=== PATIENT | female | born 1970 | race Caucasian/White ===

== ENCOUNTER 2020-11-15 15:44 | Emergency (ER) | payer OTHER ==
[~2020-11-15] VITALS: Ht 162.6 cm; Wt 75.3 kg
--- NOTE | ~2020-11-15 | EMS ---
[address] [address] EMS Patient Care Report Name: GUS FELIZ Room #: DEP ERIKA Wang#: [id number] Admission: 11/15/20 Attend Phys: Discharge: 11/15/20 Date of : 74 Report #: [id number] THIS REPORT FOR: //name// Report Transmitted: 11/17/2020 08:51 EMS Care Summary [place], [place]/[facility] Incident [id number] @ 11/15/2020 15:13 Incident Location [address] [place], [place] [id number] Patient GUS FELIZ Female, 50 Years 1970 Patient Address [address] [place], [place] [id number] Patient History Multiple Sclerosis, Chief Complaint Respiratory Disposition Transported No Lights/[place] Reason Breathing Problem Transported To [facility] Narrative M42 arrived on scene to find the patient sitting upright in a chair. Patient said she had been outside working in the heat for about an hour. Patient said she started getting lightheaded and dizzy. Patient said she was also feeling short of breath. Patient said she had been dealing with this issue on and off for the last few months. Patient denied passing out or currently feeling short of breath. Patient was carried to the cot and seat belted in. During transport [address] [address] EMS Patient Care Report Name: GUS FELIZ Room #: DEP [facility]#: [id number] Admission: 11/15/20 Attend Phys: Discharge: 11/15/20 Date of : 74 Report #: [id number] no changes in the patient condition occurred. M42 arrived on scene of the hospital and patient care was transferred to the RN. Initial Vitals @15:38P: 84,BP: 137/80,CO: 5,SpO2: 99, @15:31P: 88,BP: 99/42,CO: 7,SpO2: 98, @15:39P: 86,R: 16,BP: 105/68,Pain: 0/10,GCS: 15,SpO2: 98,Revised Trauma: 12, @15:25P: 87,R: 16,BP: 111/78,Pain: 0/10,GCS: 15,SpO2: 98,Revised Trauma: 12, Assessments @15:23MENTAL:No Abnormalities,SKIN:No Abnormalities,HEENT:Head/Face: No Abnormalities,Eyes: No Abnormalities,Neck/Airway: No Abnormalities,LUNG SOUNDS:General: No Abnormalities,Left Upper: No Abnormalities,Right Upper: No Abnormalities,Left Lower: No Abnormalities,Right Lower: No Abnormalities,ABDOMEN:General: No Abnormalities,Left Upper: No Abnormalities,Right Upper: No Abnormalities,Left Lower: No Abnormalities,Right Lower: No Abnormalities,PELVIS//GI:No Abnormalities,EXTREMITIES:Left Arm: No Abnormalities,Right Arm: No Abnormalities,Left Leg: No Abnormalities,Right Leg: No Abnormalities,PULSE:NEURO:No Abnormalities,@15:37MENTAL:No Abnormalities,SKIN:No Abnormalities,HEENT:Head/Face: No Abnormalities,Eyes: No Abnormalities,Neck/Airway: No Abnormalities,LUNG SOUNDS:General: No Abnormalities,Left Upper: No Abnormalities,Right Upper: No Abnormalities,Left Lower: No Abnormalities,Right Lower: No Abnormalities,ABDOMEN:General: No Abnormalities,Left Upper: No Abnormalities,Right Upper: No Abnormalities,Left Lower: No Abnormalities,Right Lower: No Abnormalities,PELVIS//GI:No Abnormalities,EXTREMITIES:Left Arm: No Abnormalities,Right Arm: No Abnormalities,Left Leg: No Abnormalities,Right Leg: No Abnormalities,PULSE:NEURO:No Abnormalities, Impression Acute Respiratory Distress (Dyspnea) Procedures @15:23ALS AssessmentResponse: UnchangedSucceeded@15:36Saline Lock 10cc (20 ga) Site: Antecubital-RightResponse: UnchangedSucceeded Timeline 15:12,Call Received 15:12,Dispatch Notified 15:13,Dispatched 15:14,En Route 15:22,On Scene 15:23,At Patient 15:23,ALS Assessment,Response: UnchangedSucceeded, 15:25,BP: 111/78 M,PULSE: 87,RR: 16 R,SPO2: 98 Ox,ETCO2: ,BG: ,PAIN: 0,GCS: 15, 15:28,Depart Scene [facility] [address] [place] [address] EMS Patient Care Report Name: GUS FELIZ Room #: [facility] ERIKA Wang#: [id number] Admission: 11/15/20 Attend Phys: Discharge: 11/15/20 Date of : 74 Report #: [id number] 15:31,BP: 99/42 M,PULSE: 88,RR: R,SPO2: 98 Ox,ETCO2: ,BG: ,PAIN: ,GCS: , 15:36,Saline Lock 10cc 20 ga Site: Antecubital-Right,Response: UnchangedSucceeded, 15:38,BP: 137/80 M,PULSE: 84,RR: R,SPO2: 99 Ox,ETCO2: ,BG: ,PAIN: ,GCS: , 15:39,BP: 105/68 M,PULSE: 86,RR: 16 R,SPO2: 98 Ox,ETCO2: ,BG: ,PAIN: 0,GCS: 15, 15:40,At Destination 15:58,Call Closed Disclaimer v1.1 Copyright 2020 [employer] This EMS Care Summary contains data elements from the applicable legal record (which may be displayed differently). It is designed to provide pertinent information for the following purposes: continuity of care, clinical quality, and state data reporting. The complete legal record is available to ED staff and administrators of the receiving hospital in [employer]'s Patient Tracker. All data is provided "as is."
[2020-11-15 15:59] LABS: ABSOLUTE NEUTROPHILS 7.4 thou/uL (1.4-8.2); EOSINOPHILS 0.8 % (0.0-3.0); HEMATOCRIT 27.6 % (37.0-47.0); LYMPHOCYTES 12.1 % (24.0-44.0); MCH 23.7 pg (26.0-34.0); MCHC 32.5 g/dL (28.0-37.0); MCV 72.7 fL (80.0-100.0); MONOCYTES 5.7 % (1.0-8.0); PLATELET COUNT 354 thou/uL (150-400); POLYS 80.4 % (36.0-66.0); RDW 16.1 % (10.5-14.5); WBC 9.2 thou/uL (4.0-11.0)
[2020-11-15 16:13] LABS: ANION GAP 15 mmol/L (7-16); BUN 19 mg/dL (7-18); CALCIUM 9.8 mg/dL (8.5-10.1); CHLORIDE 103 mmol/L (98-107); CO2 25 mmol/L (21-32); CREATININE 1.3 mg/dL (0.6-1.0); GLUCOSE 101 mg/dL (74-106); POTASSIUM 3.5 mmol/L (3.5-5.1); SODIUM 143 mmol/L (136-145)
[2020-11-15 16:22] LABS: TROPONIN-I <0.06 ng/mL (<0.06)
[2020-11-15 16:39] VITALS: BP 115/78
[2020-11-15 17:11] LABS: URINE BILIRUBIN NEGATIVE (Negative); URINE BLOOD NEGATIVE (Negative); URINE COLOR YELLOW; URINE GLUCOSE-RANDOM* NEGATIVE (Negative); URINE KETONES TRACE (Negative); URINE PROTEIN (DIPSTICK) NEGATIVE (Negative); URINE UROBILINOGEN 0.2 E.U./dl (0.2-1.0)
[2020-11-15 17:12] LABS: URINE CLARITY HAZY; URINE LEUKOCYTES-REFLEX 1+ (Negative); URINE NITRITE-REFLEX POSITIVE (Negative)
[2020-11-15 17:36] LABS: BACTERIA-REFLEX >30 Many /HPF (None Seen); CASTS None Seen /LPF (None Seen); CRYSTALS None Seen /LPF (None Seen); SQUAMOUS 4-10 Moderate /LPF (0-3); URINE RBC 1-2 Rare /HPF (NONE SEEN); URINE WBC-REFLEX 6-15 Few /HPF (0-5)
[2020-11-15] MEDS ORDERED: CEPHALEXIN500 MG PO (18:26)
[2020-11-15 21:08] LABS: ANISOCYTOSIS 1+; HYPOCHROMASIA 1+; MICROCYTES 1+; OVALOCYTES 1+
--- NOTE | 2020-11-16 07:27 | EKG ---
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
== END 2020-11-15 18:26 | disposition home or self-care (01) ==
LOC: ER 15:44
PROVIDERS: Nurse Practitioner
DX: R55 Syncope and collapse (principal); N39.0 Urinary tract infection, site not specified; G43.909 Migraine, unspecified, not intractable, without status migrainosus; F41.9 Anxiety disorder, unspecified; Z90.81 Acquired absence of spleen; Z98.890 Other specified postprocedural states; Z91.041 Radiographic dye allergy status; Z88.8 Allergy status to other drugs, medicaments and biological substances

== ENCOUNTER 2020-12-10 14:20 | Inpatient (IN) | payer OTHER ==
[~2020-12-10] VITALS: Ht 162.6 cm; Wt 66.7 kg
--- NOTE | ~2020-12-10 | EMS ---
[facility] [address] [place] [address] EMS Patient Care Report Name: GUS FELIZ Room #: 170-4 ADM IN M.R.#: [id number] Admission: 12/10/20 Attend Phys: Germán Rodrigues MD Discharge: Date of : 74 Report #: [id number] THIS REPORT FOR: //name// Report Transmitted: 12/11/2020 09:50 EMS Care Summary [place], [place]/[facility] Incident [id number] @ 12/10/2020 13:57 Incident Location [address] [place] [address] Patient GUS FELIZ Female, 50 Years 1970 Patient Address [address] [place] [address] Patient History Hypertension (HTN),Anemia,Multiple Sclerosis, Patient Allergies Dye allergy,Reglan, Patient Medications Lisinopril, Adderall, Chief Complaint COUGH Disposition Transported No Lights/[place] Reason Breathing Problem Transported To [facility] Narrative ARRIVED TO FIND PT WALKING TOWARD AMBULANCE. PT STATES SHE HAS HAD COVID-19 FOR 11 DAYS, AND TODAY FEELS WEAK AND SHORT OF BREATH, WITH A PERSISTANT COUGH. PT [facility] [address] [place] [address] EMS Patient Care Report Name: GUS FELIZ Room #: 170-4 ADM IN Felipe#: [id number] Admission: 12/10/20 Attend Phys: Germán Rodrigues MD Discharge: Date of : 74 Report #: [id number] STEPS INSIDE AMBULANCE, SITS ON BENCH SECURED WITH STRAPS X2. ALS ASSESSMENT VITALS OBTAINED. ENROUTE, PT CONDITION UNCHANGED. ARRIVED. PT TAKEN INSIDE ON COT TO ER TRIAGE. REPORT GIVEN TO NURSE, PT CARE TRANSFERRED. Initial Vitals @14:10P: 110,R: 20,BP: 107/71,Pain: 0/10,GCS: 15,SpO2: 100,Revised Trauma: 12, @14:13P: 110,R: 20,Pain: 0/10,GCS: 15,SpO2: 90, Assessments @14:05MENTAL:Place Oriented,Time Oriented,Person Oriented,Event Oriented,SKIN:HEENT:Head/Face: No Abnormalities,Eyes: No Abnormalities,Neck/Airway: No Abnormalities,LUNG SOUNDS:General: Diarrhea,Left Upper: No Abnormalities,Right Upper: No Abnormalities,Left Lower: No Abnormalities,Right Lower: No Abnormalities,ABDOMEN:General: Diarrhea,Left Upper: No Abnormalities,Right Upper: No Abnormalities,Left Lower: No Abnormalities,Right Lower: No Abnormalities,PELVIS//GI:No Abnormalities,EXTREMITIES:Left Arm: No Abnormalities,Right Arm: No Abnormalities,Left Leg: No Abnormalities,Right Leg: No Abnormalities,PULSE:Radial: 2+ Normal,NEURO:No Abnormalities, Impression COVID-19 - Confirmed by testing Procedures @14:05ALS AssessmentResponse: UnchangedSucceeded Timeline 13:54,Call Received 13:54,Dispatch Notified 13:57,Dispatched 14:00,En Route 14:03,On Scene 14:05,At Patient 14:05,ALS Assessment,Response: UnchangedSucceeded, 14:06,Depart Scene 14:10,BP: 107/71 M,PULSE: 110,RR: 20 R,SPO2: 100 Ox,ETCO2: ,BG: ,PAIN: 0,GCS: 15, 14:13,BP: / M,PULSE: 110,RR: 20 R,SPO2: 90 Ox,ETCO2: ,BG: ,PAIN: 0,GCS: 15, 14:18,At Destination 14:30,Call Closed Disclaimer [facility] [address] [place] [address] EMS Patient Care Report Name: GUS FELIZ Room #: 170-4 ADM IN M.R.#: [id number] Admission: 12/10/20 Attend Phys: Germán Rodrigues MD Discharge: Date of : 74 Report #: [id number] v1.1 Copyright 2020 [employer] This EMS Care Summary contains data elements from the applicable legal record (which may be displayed differently). It is designed to provide pertinent information for the following purposes: continuity of care, clinical quality, and state data reporting. The complete legal record is available to ED staff and administrators of the receiving hospital in [employer] Patient Tracker. All data is provided "as is."
[~2020-12-10 14:20] MED LIST: CEPHALEXIN500 MG PO
[2020-12-10 14:21] VITALS: BP 94/58
[2020-12-10] MEDS ORDERED: LISINOPRIL-HCT1 EAC2 PO (18:45)
[2020-12-10] MEDS ORDERED: DEXTROAMP-AMPHE30 MG PO (18:45)
[2020-12-10] MEDS ORDERED: GABAPENTIN 100100 MG PO (18:45)
[2020-12-10] MEDS ORDERED: WELLBUTRIN SR150 MG PO (18:45)
[2020-12-10] MEDS ORDERED: ZOLPIDEM TART12.5 MG PO (18:46)
[2020-12-10 19:47] LABS: ABSOLUTE NEUTROPHILS 2.8 thou/uL (1.4-8.2); BASOPHILS 0.5 % (0.0-2.0); EOSINOPHILS 1.3 % (0.0-3.0); HEMATOCRIT 28.8 % (37.0-47.0); HEMOGLOBIN 9.2 gm/dL (12.0-15.0); LYMPHOCYTES 36.4 % (24.0-44.0); MCH 22.7 pg (26.0-34.0); MCHC 31.9 g/dL (28.0-37.0); MCV 71.1 fL (80.0-100.0); MONOCYTES 6.1 % (1.0-8.0); PLATELET COUNT 319 thou/uL (150-400); POLYS 55.7 % (36.0-66.0); RBC 4.05 mil/uL (4.20-5.00); RDW 18.3 % (10.5-14.5)
[2020-12-10 19:53] LABS: CALCIUM 9.2 mg/dL (8.5-10.1); CREATININE 0.9 mg/dL (0.6-1.0); POTASSIUM 3.8 mmol/L (3.5-5.1)
[2020-12-11 05:10] LABS: HEMATOCRIT 27.1 % (37.0-47.0); HEMOGLOBIN 8.7 gm/dL (12.0-15.0); MCH 23.1 pg (26.0-34.0); MCHC 32.1 g/dL (28.0-37.0); RBC 3.77 mil/uL (4.20-5.00); RDW 18.1 % (10.5-14.5); WBC 7.3 thou/uL (4.0-11.0)
[2020-12-11 05:14] LABS: ALBUMIN 3.3 g/dL (3.4-5.0); CALCIUM 8.3 mg/dL (8.5-10.1); CREATININE 0.9 mg/dL (0.6-1.0); POTASSIUM 4.3 mmol/L (3.5-5.1); TOTAL BILIRUBIN 0.3 mg/dL (0.2-1.0); TOTAL PROTEIN 6.5 g/dL (6.4-8.2)
--- NOTE | 2020-12-11 09:21 | EKG ---
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
--- NOTE | 2020-12-11 10:30 | NUR ---
TOOK OVER CARE FROM FRANCIS ALONSO AT THIS TIME
--- NOTE | 2020-12-11 21:17 | NUR ---
MEDS HELD ACKNOWLEDGED FROM PHARMACY AT AROUND 2030, MEDS STILL NOT AVALIABLE AT THIS TIME FROM PHARMACY.
[2020-12-11 21:21] VITALS: BP 122/72
[2020-12-11 21:35] VITALS: BP 106/63
[2020-12-11 23:58] VITALS: BP 123/78
--- NOTE | 2020-12-12 01:43 | NUR ---
PT ALERT AND ORIENTED X4. ADMITTED FROM ER FROM HOME. LIVES IN APARTMENT WITH HER GRANDDAUGHTER. CAME IN FOR INCREASED WEAKNESS AND INCREASED SOA FROM COVID. INSTRUCTED PT ON FALL PRECAUTONS. BED ALARM IS ON. SHE STATED SHE HAS HAD MULTIPLE FALLS AT HOME DUE TO WEAKNESS FROM MS IN THE PAST. PT DENIED ANY PAIN CURRENTLY. NONPRODUCTIVE COUGH NOTED. UNLABORED ON RA. LUNGS SOUND DIMINISHED. ENCOURAGED PO FLUIDS. PT HAS A POOR APPETITE. IVF NS AT 126 INFUSING WITHOUT DIFFICUTY TO RIGHT AC. VSS AFEBRILE. WILL CONTINUE TO MONITOR PT FOR CHANGES.
[2020-12-12 04:24] VITALS: BP 88/57
[2020-12-12 05:26] VITALS: BP 116/70
[2020-12-12 08:03] VITALS: BP 108/80
[2020-12-12 10:02] LABS: HEMOGLOBIN 8.4 gm/dL (12.0-15.0); MCH 22.3 pg (26.0-34.0); MCHC 31.2 g/dL (28.0-37.0); MCV 71.5 fL (80.0-100.0); RBC 3.78 mil/uL (4.20-5.00); RDW 18.4 % (10.5-14.5); WBC 4.9 thou/uL (4.0-11.0)
[2020-12-12 15:14] VITALS: BP 102/71
--- NOTE | 2020-12-12 18:37 | NUR ---
RN ASSUMED PT'S CARE 0700AM, PT IS A&OX4, PT IS CONTINUING TO MANAGE COVID INFECTION AND COUGHING, PT IS ON ROOM AIR , PT'S VS AND O2SAT ARE ARE STABLE , PT'S DENIES SOB AND PAIN AT DAY SHIFT.
[2020-12-12 19:14] VITALS: BP 104/74
[2020-12-13 04:02] VITALS: BP 101/69
[2020-12-13 04:35] LABS: HEMATOCRIT 25.3 % (37.0-47.0); HEMOGLOBIN 7.9 gm/dL (12.0-15.0); MCH 22.8 pg (26.0-34.0); MCHC 31.4 g/dL (28.0-37.0); MCV 72.4 fL (80.0-100.0); RBC 3.49 mil/uL (4.20-5.00); RDW 18.9 % (10.5-14.5); WBC 5.5 thou/uL (4.0-11.0)
--- NOTE | 2020-12-13 05:36 | NUR ---
resting quietly at this time. the cough medication is effective for control. she calls approp for assist to bsc. only generalized pain from coughing. tylenol is effective for pain control.
[2020-12-13 07:30] VITALS: BP 108/74
[2020-12-13 15:07] VITALS: BP 111/73
[2020-12-13 15:44] VITALS: BP 136/33
--- NOTE | 2020-12-13 15:57 | NUR ---
RN ASSUMED PT'S CARE AT 0700AM, PT IS A&OX4, PT IS ON ROOM AIR, PT'S VS AND O2SAT ARE STABLE, BUT PT STILL HAS COUGHING LOT EVEN PT HAS MEDICATIONS, PT HAS POOR EATING AT MEAL TIME, PT GETS UP TO BCS WITH ASSIST, PT IS CONTINUING NS@126ML/HR, AND TREAT COVID MEDICATIONS. PT DENIES PAIN AND SOB BY THIS TIME.
[2020-12-13 19:51] VITALS: BP 115/61
--- NOTE | 2020-12-13 22:02 | NUR ---
PT PROGRESSING WELL TOWARDS D/C GOALS. VSS AFEBRILE. SB-SR ON MONITOR 50S-60S. SATS 1005 ON RA. NO C/O PAIN OR SOA. BS CLEAR PRESENTLY. NO S/S DISTRESS. INFORMED PT OF NEED FOR STOOL FOR OCCULT BLOOD. PT HAS POOR APPETITE. ENCOURAGED PO. PT NONCOMPLIANT WITH EATING. SHE REFUSED A SNACK. BED DOWM . CALL LIGHT IN REACH. ENC TO CALL FOR ASSISTANCE BEFORE GETTING OOB DUE TO UNSTEADINESS.
[2020-12-14 04:00] VITALS: BP 107/62
--- NOTE | 2020-12-14 05:01 | NUR ---
PT ALERT X4. VSS AFEBRILE. SAT 1005 ON RA. COUGH HAS LESSENED. DENIED NEEDING PRN COUGH MEDICINE TONIGHT. NO C/O PAIN. PT STILL CONTINUES TO HAVE A POOR APPETITIE.
[2020-12-14 07:11] VITALS: BP 119/72
[2020-12-14 12:30] VITALS: BP 142/81
[2020-12-14 13:19] LABS: HEMOGLOBIN 9.1 gm/dL (12.0-15.0); MCH 22.6 pg (26.0-34.0); MCHC 31.4 g/dL (28.0-37.0); MCV 71.9 fL (80.0-100.0); RBC 4.04 mil/uL (4.20-5.00); RDW 19.1 % (10.5-14.5); WBC 7.4 thou/uL (4.0-11.0)
[2020-12-14] MEDS ORDERED: ZINC SULFATE50 MG PO (14:47)
[2020-12-14] MEDS ORDERED: VITAMIN C1000 MG PO (14:47)
[2020-12-14] MEDS ORDERED: PREDNISONE 20 M20 M1 PO (14:47)
[2020-12-14] MEDS ORDERED: GUAIFEN-CODEINE10 ML PO (14:47)
[2020-12-14] MEDS ORDERED: VITAMIN D325 MC2 PO (14:47)
[2020-12-14] MEDS ORDERED: ACETAMINOPHEN325 M1 PO (14:47)
[2020-12-14] MEDS ORDERED: ELIQUIS5 MG PO (14:47)
[2020-12-14] MEDS ORDERED: TESSALON PERLE100 MG PO (14:47)
[2020-12-14] MEDS ORDERED: PULMICORT0.5 MG/21 INH (14:47)
[2020-12-14] MEDS ORDERED: MUCUS RLF DM E1 EACH PO (14:47)
[2020-12-14] MEDS ORDERED: IPRAT-ALBUT 0.5-3 ML INH (14:47)
[2020-12-14 15:00] VITALS: BP 122/82
[2020-12-14 15:10] VITALS: BP 122/82
--- NOTE | 2020-12-14 15:12 | NUR ---
INITIAL ASSESSMENT/DISCHARGE NOTE: Received consult. ADAN reviewed chart and spoke with nursing and attending physician. Pt was admitted from home due to COVID. Pt placed in Enhanced Isolation. Pt is afebrile and not requiring home O2. Per attending, pt is medically stable for discharge home today. ADAN spoke with pt via phone. Introduced role of SW. Pt is alert/orientated x 4. Pt reports she lives at home with family. Prior to admission, pt was independent with ADLs. No hx of HH services or post-acute placement. Pt's PCP is Dr. Flako Jay. ADAN discussed discharge plan with pt, who states that she will be staying with her daughter upon discharge and feels ready to discharge home. Pt's family is able to provide transportation home. SW discussed case with physical therapy, who states that pt may benefit from post-acute care. SW updated attending physician, who states pt is medically stable for discharge home today. Pt will need a roller walker and HH services. ADAN spoke with pt via phone to provide update. Pt is aware and in agreement with plan. Options provided for HH and DME companies. No preference voiced. ADAN notified [facility] liaison of new referral. SW faxed info and script for roller walker to [facility]. Notified [facility] liaison. Walker to be delivered to the nurses station prior to discharge. Contact info for and [facility] placed in pt's discharge summary. Pt to call family when ready for discharge. No additional SW needs identified at this time, but is available to assist should needs arise.
--- NOTE | 2020-12-14 16:23 | EKG ---
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
--- NOTE | 2020-12-14 16:23 | EKG ---
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 : 1970 Requested By: Germán Rodrigues Order Number: [id number] MD: Tye Hawthorne Measurements Intervals [place] Rate: 74 P: 31 MT: 170 QRS: 53 QRSD: 101 T: 66 QT: 409 QTc: 454 Interpretive Statements Sinus rhythm No significant abnormality Compared to ECG 12/10/2020 18:33:43 No significant change was found Electronically Signed On 12-14-2020 16:23:26 CDT by Tye Hawthorne [email or web address] <ELECTRONICALLY SIGNED> By: Tye Hawthorne MD, [facility] 12/14/20 1623 1247 1247 Tye Hawthorne MD, FACC /EPI
--- NOTE | 2020-12-14 18:55 | NUR ---
RN ASSUMED PT'S CARE AT 0700-1830PM, PT IS A&OX4, PT 'S COUGHING HAS IMPROVED, PT DENIES SOB AND N/V, PT'S O2SAT STAY AT 93-96% AT ROOM AIR, PT'S VS ARE STABLE, WE ENCOUAGE PT TO EAT AND DRINK, PT HAS PT/OT TO WORK WITH HER, PT STILL NEEDS HELP ADL, RN RECEIVED ORDER TO DC PT TO HOME WITH HOME HEALTH , PT HAS NEW WALKER WITH HER, RN HAS REPORTED HOSPITAL DR ABOUT PT'S WEAKNESS , RN HAS GIVING DC TEACHING TO PT AND PT'S DAUGHTER ( ON PHONE), INCLUDING MEDICATIONS, COVID PRECAUCIONES, AND PT NEEDS ISOLATION UNTILL 12/22/20 ( TOTAL 3 WEEKS FOR SAFTY) ,PT AND PT'S DAUGHTER UNDERSTAND WELL, PT'S DAUGTER PATTERNMAKER HELPER PT TO HOME AT 1830PM.
== END 2020-12-14 18:40 | disposition home health service (06) | DRG 177 ==
LOC: ER 14:20 → 3W 21:56 → EROBS 21:56 → 3W 12-11 21:22
PROVIDERS: Nurse Practitioner Family; Physician Assistant; ADMIT Internal Medicine; ATTEND Internal Medicine
DX: U07.1 COVID-19 (principal); I26.99 Other pulmonary embolism without acute cor pulmonale; J12.82 Pneumonia due to coronavirus disease 2019; J96.01 Acute respiratory failure with hypoxia; E43 Unspecified severe protein-calorie malnutrition; Z79.899 Other long term (current) drug therapy; D64.9 Anemia, unspecified; I10 Essential (primary) hypertension; G35 Multiple sclerosis; Z88.8 Allergy status to other drugs, medicaments and biological substances; F41.1 Generalized anxiety disorder; G43.909 Migraine, unspecified, not intractable, without status migrainosus; Z98.51 Tubal ligation status; Z90.721 Acquired absence of ovaries, unilateral
CPT/HCPCS: 10879